=== PATIENT | male | born 1995 | race Caucasian/White ===

== ENCOUNTER 2019-06-03 04:10 | Emergency (ER) | payer MEDICAID ==
[~2019-06-03] VITALS: Ht 188 cm; Wt 110.1 kg
[2019-06-03 04:16] VITALS: BP 127/81
--- NOTE | 2019-06-03 04:44 | NUR ---
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 THIS RN TO ROOM "BRYNN LICONA DID YOU NEED SOMETHING?" PATIENT-"I DON'T MAN I JUST NEED A DOCTOR OR SOMETHING". RN-"OKAY IS THERE SOMETHING I CAN HELP YOU WITH?" PATIENT-"I NEED SOMEONE WHO KNOWS WHAT THE FUCK THEY ARE DOING". RN- "I'M A NURSE IS THERE SOMETHING YOU NEED NOW?" PT- "I DON'T KNOW MAN". PATIENT UNABLE TO FURTHER DESCRIBE HIS NEEDS AT THIS TIME.
--- NOTE | 2019-06-03 04:55 | NUR ---
PT COME TO THE NURSES STATION YELLING "WHY THE FUCK ISN'T ANYONE SEEING ME I AM HAVING AN EMERGENCY, LOOK AT MY FUCKIN FACE". PT ENCOURAGED TO EITHER GO BACK TO HIS ROOM OR HE IS WELCOME TO LEAVE. PT THEN AMBULATES OUT DOOR AT REGISTRATION DESK WITH STEADY GAIT AND SISTER WHO IS PTS B[employer] PILOT.
== END 2019-06-03 04:59 | disposition left against medical advice (07) ==
LOC: ED 04:45
DX: R04.0 Epistaxis (principal); Z53.21 Procedure and treatment not carried out due to patient leaving prior to being seen by health care provider